=== PATIENT | female | born 1955 | race African-American/Black ===

== ENCOUNTER 2021-11-15 11:07 | Inpatient (IN) ==
[2021-11-15 12:20] LABS: Basophils % 0.4 % (0.0-0.8); Immature Granulocytes % 0.5 %; Immature Granulocytes Absolute 0.04 #; Mean Corpuscular Volume 81.2 FL (87-102); Red Cell Distribution Width 19.1 % (9.3-17.3)
[2021-11-15 12:30] LABS: INR 2.3; PT Patient Result 23.8 SECS (10.5-12.0); Partial Thromboplastin Time 38.2 SECS (23.7-32.9)
[2021-11-15 12:40] LABS: Eosinophils # 0.2 10*3/uL (0.0-0.87); Eosinophils % 2.5 % (0.00-10.9); Hematocrit 43.6 VOL% (35.7-47.0); Lymphocytes # 1.7 10*3/uL (1.4-4.0); Mean Platelet Volume 11.1 FL (9.6-12.0); Monocytes # 0.9 10*3/uL (0.11-0.8); Neutrophils % 62.6 % (38.7-73.9); Platelet Count 401 T/CUMM (130-400); Red Blood Count 5.37 MC/CUMM (3.8-5.5); White Blood Count 7.7 T/CUMM (4-12)
[2021-11-15 12:42] LABS: Hemoglobin 13.1 GM/DL (12.0-16.0)
[2021-11-15 12:45] LABS: Albumin 3.8 G/DL (3.4-5.0); Bilirubin,Total 0.7 MG/DL (0.20-1.00); Calcium 10.2 MG/DL (8.5-10.1); Osmolality,Calculated 281.1 MOS/KG (273-304); Potassium 3.3 MMOL/L (3.5-5.1); Total Protein 9.1 G/DL (6.4-8.2)
[2021-11-15] MEDS ORDERED: GLUCAGON 1 MG VIAL IM PRN ×2 (16:06)
[2021-11-15] MEDS ORDERED: ACETAMINOPHEN 325 MG TABLET PO PRN (16:06)
[2021-11-15] MEDS ORDERED: DEXTROSE 50% 25 GM/50 ML VIAL IV PRN (16:06)
[2021-11-15] MEDS ORDERED: ONDANSETRON 4 MG/2 ML VIAL IV PRN (16:06)
[2021-11-15] MEDS ORDERED: DEXTROSE 10% 250 ML BAG IV PRN (16:12)
[2021-11-15] MEDS: INSULIN LISPRO 100 UNIT/ML SUBCUT SCH ×2 (17:44→21:05)
[2021-11-15] MEDS: SODIUM CHLORIDE 0.9% 1,000 ML IV SCH (18:47)
[2021-11-15] MEDS ORDERED: ENOXAPARIN 30 MG/0.3 ML SYRINGE SUBCUT SCH (21:00)
[2021-11-15] MEDS ORDERED: FAMOTIDINE 20 MG TABLET PO SCH (21:00)
[2021-11-15] MEDS: DOCUSATE SODIUM 100 MG CAPSULE PO SCH (21:04)
[2021-11-15] MEDS: carvediloL 3.125 MG TABLET PO SCH (21:04)
[2021-11-15] MEDS: INSULIN GLARGINE 100 UNIT/ML SUBCUT SCH (21:05)
[2021-11-16 04:39] LABS: Basophils % 0.3 % (0.0-0.8); Eosinophils # 0.2 10*3/uL (0.0-0.87); Eosinophils % 3.4 % (0.00-10.9); Hematocrit 38.5 VOL% (35.7-47.0); Hemoglobin 11.5 GM/DL (12.0-16.0); Immature Granulocytes % 0.3 %; Immature Granulocytes Absolute 0.02 #; Lymphocytes # 1.8 10*3/uL (1.4-4.0); Lymphocytes % 30.7 % (21.3-54.2); Mean Corpuscular HGB Conc 29.9 GM/DL (32-36); Mean Corpuscular Volume 82.8 FL (87-102); Monocytes # 1.2 10*3/uL (0.11-0.8); Monocytes % 19.8 % (1.7-12.7); Neutrophils % 45.5 % (38.7-73.9); Platelet Count 280 T/CUMM (130-400); Red Blood Count 4.65 MC/CUMM (3.8-5.5); Red Cell Distribution Width 18.5 % (9.3-17.3); White Blood Count 5.9 T/CUMM (4-12)
[2021-11-16 04:56] LABS: INR 2.7; PT Patient Result 28.1 SECS (10.5-12.0)
[2021-11-16 05:03] LABS: Eosinophils 1 % (0-10); Hypochromia Slight; Lymphocytes 34 % (20-55); Microcytosis Slight; Platelet Estimate Adequate; Total Cells Counted 100
[2021-11-16 05:05] LABS: Albumin 3.1 G/DL (3.4-5.0); Bilirubin,Total 0.5 MG/DL (0.20-1.00); Calcium 9.5 MG/DL (8.5-10.1); Osmolality,Calculated 275.7 MOS/KG (273-304); Potassium 2.8 MMOL/L (3.5-5.1); Total Protein 7.4 G/DL (6.4-8.2)
[2021-11-16] MEDS: SODIUM CHLORIDE 0.9% 1,000 ML IV SCH (05:39)
[2021-11-16] MEDS: POTASSIUM CHLORIDE 20 MEQ TABLET PO PRN ×4 (07:32→16:03)
[2021-11-16] MEDS ORDERED: WARFARIN 7.5 MG TABLET PO SCH ×2 (09:00→18:00)
[2021-11-16] MEDS ORDERED: CYANOCOBALAMIN 1000 MCG/1 ML VIAL IM SCH (09:00)
[2021-11-16] MEDS ORDERED: PANTOPRAZOLE 40 MG TABLET PO SCH (09:00)
[2021-11-16] MEDS: POTASSIUM CHLORIDE INJ 30 MEQ in SODIUM CHLORIDE 0.9% 1,000 ML IV SCH (09:43)
[2021-11-16] MEDS: DOCUSATE SODIUM 100 MG CAPSULE PO SCH ×2 (09:46→21:30)
[2021-11-16] MEDS: carvediloL 3.125 MG TABLET PO SCH ×2 (09:46→21:30)
[2021-11-16] MEDS: INSULIN GLARGINE 100 UNIT/ML SUBCUT SCH ×2 (09:46→21:30)
[2021-11-16] MEDS: MONTELUKAST 10 MG TABLET PO SCH (09:47)
[2021-11-16] MEDS: INSULIN LISPRO 100 UNIT/ML SUBCUT SCH ×4 (09:48→21:30)
[2021-11-16] MEDS ORDERED: BACLOFEN 10 MG TABLET PO ONE (21:14)
[2021-11-17 04:38] LABS: INR 2.5; PT Patient Result 26.3 SECS (10.5-12.0)
[2021-11-17 04:56] LABS: Basophils % 0.2 % (0.0-0.8); Eosinophils # 0.4 10*3/uL (0.0-0.87); Hemoglobin 11.5 GM/DL (12.0-16.0); Immature Granulocytes % 0.2 %; Immature Granulocytes Absolute 0.01 #; Lymphocytes # 1.7 10*3/uL (1.4-4.0); Lymphocytes % 32.6 % (21.3-54.2); Mean Corpuscular HGB Conc 29.8 GM/DL (32-36); Mean Corpuscular Volume 82.3 FL (87-102); Mean Platelet Volume 10.3 FL (9.6-12.0); Monocytes % 18.1 % (1.7-12.7); Neutrophils % 41.9 % (38.7-73.9); Platelet Count 239 T/CUMM (130-400); Red Blood Count 4.69 MC/CUMM (3.8-5.5); Red Cell Distribution Width 18.3 % (9.3-17.3); White Blood Count 5.3 T/CUMM (4-12)
[2021-11-17 04:57] LABS: Calcium 9.7 MG/DL (8.5-10.1); Osmolality,Calculated 278.5 MOS/KG (273-304); Potassium 3.5 MMOL/L (3.5-5.1)
[2021-11-17 04:58] LABS: Hematocrit 38.6 VOL% (35.7-47.0)
[2021-11-17 05:02] LABS: Eosinophils 11 % (0-10); Hypochromia Slight; Lymphocytes 34 % (20-55); Microcytosis Slight; Platelet Estimate Adequate; Total Cells Counted 100
[2021-11-17] MEDS: PANTOPRAZOLE 40 MG TABLET PO SCH ×2 (05:25→09:43)
[2021-11-17] MEDS: POTASSIUM CHLORIDE INJ 30 MEQ in SODIUM CHLORIDE 0.9% 1,000 ML IV SCH (06:15)
[2021-11-17] MEDS: INSULIN GLARGINE 100 UNIT/ML SUBCUT SCH (09:41)
[2021-11-17] MEDS: INSULIN LISPRO 100 UNIT/ML SUBCUT SCH ×2 (09:41→15:10)
[2021-11-17] MEDS: POTASSIUM CHLORIDE 20 MEQ TABLET PO PRN (09:43)
[2021-11-17] MEDS: DOCUSATE SODIUM 100 MG CAPSULE PO SCH (09:43)
[2021-11-17] MEDS: MONTELUKAST 10 MG TABLET PO SCH (09:43)
[2021-11-17] MEDS: carvediloL 3.125 MG TABLET PO SCH (09:43)
[2021-11-17 12:38] VITALS: BP 122/71
== END 2021-11-17 16:05 | disposition home health service (06) | DRG 683 ==
LOC: N.ED 11:07 → N.EDINP 16:06 → SUATTDRO 16:06 → N.TELEN 17:23
PROVIDERS: ADMIT Internal Medicine Geriatric Medicine; ATTEND Internal Medicine